=== PATIENT | male | born 1955 | race Caucasian/White ===

== ENCOUNTER 2020-08-18 08:12 | Day surgery (SDC) | payer MEDICARE, BC ==
[~2020-08-18] VITALS: Ht 177.8 cm; Wt 94.3 kg
[~2020-08-18 08:12] MED LIST: ALEVE220 M2 PO; ALLEGRA30 MG OR; ASPIRIN EC81 MG PO; DIPHENHYDRAM25 MG PO; FEXOFENADINE180 MG PO; FISH OIL1000 MG PO; FLEXERIL OR; FLONASE0.05 % NAB; KLOR-CON M2020 MEQ PO; LIPITOR20 M1 PO; METOPROL TAR25 M1 PO; MONTELUKAST SOD10 MG PO; ONE DAILY MENS PO; PERCOCET1 TA4 PO; ULTRAM50 M1 PO
[2020-08-18 10:42] VITALS: BP 120/71
== END 2020-08-18 10:55 | disposition home or self-care (01) ==
LOC: ENDO 08:12
PROVIDERS: ATTEND Surgery
PROC: 0DJD8ZZ Inspection of Lower Intestinal Tract, Via Natural or Artificial Opening Endoscopic (ICD-10-PCS; principal; 2020-08-18)
DX: Z12.11 Encounter for screening for malignant neoplasm of colon (principal); K64.8 Other hemorrhoids